=== PATIENT | male | born 1950 | race Caucasian/White ===

== ENCOUNTER 2022-01-31 09:15 | Outpatient (RCR) | payer MEDICARE ==
[2022-01-31] MEDS ORDERED: LIDOCAINE VISC 2% SOLN 15 ML UDC ONE (11:40)
[2022-02-10] MEDS ORDERED: DROXIDOPA100 MG PO (14:59)
[2022-02-10] MEDS ORDERED: FLUDROCORTISON0.1 MG PO (14:59)
[2022-02-10] MEDS ORDERED: MIDODRINE HCL5 MG PO (14:59)
[2022-02-10] MEDS ORDERED: FEROSUL325 MG PO (14:59)
[2022-02-10] MEDS ORDERED: POTASSIUM CHLO20 ME1 PO (14:59)
[2022-02-10] MEDS ORDERED: MAGNESIUM OXID400 MG PO (14:59)
[2022-02-10] MEDS ORDERED: PANTOPRAZOLE SO40 MG PO (14:59)
[2022-02-10] MEDS ORDERED: SIMVASTATIN40 MG PO (14:59)
[2022-02-10] MEDS ORDERED: ASPIRIN CHEW81 MG PO (14:59)
[2022-02-14] MEDS ORDERED: KEFLEX125 MG/5 M PO (16:56)
[2022-02-14] MEDS ORDERED: ELIQUIS2.5 MG PO (16:57)
== END 2022-02-16 ==
LOC: WCC 09:15
PROVIDERS: ATTEND Internal Medicine Infectious Disease
DX: I87.311 Chronic venous hypertension (idiopathic) with ulcer of right lower extremity (principal); I87.312 Chronic venous hypertension (idiopathic) with ulcer of left lower extremity; L97.211 Non-pressure chronic ulcer of right calf limited to breakdown of skin; L97.221 Non-pressure chronic ulcer of left calf limited to breakdown of skin; L97.821 Non-pressure chronic ulcer of other part of left lower leg limited to breakdown of skin; I87.2 Venous insufficiency (chronic) (peripheral); M1A.9XX0 Chronic gout, unspecified, without tophus (tophi); E78.5 Hyperlipidemia, unspecified; I25.10 Atherosclerotic heart disease of native coronary artery without angina pectoris; I50.9 Heart failure, unspecified; J44.9 Chronic obstructive pulmonary disease, unspecified; D51.0 Vitamin B12 deficiency anemia due to intrinsic factor deficiency; G47.31 Primary central sleep apnea; I95.89 Other hypotension; K21.9 Gastro-esophageal reflux disease without esophagitis; N18.6 End stage renal disease; Z99.2 Dependence on renal dialysis; Z99.81 Dependence on supplemental oxygen

== ENCOUNTER → 2022-02-06 | Outpatient (CLI) | payer MEDICARE ==
[~2022-02-06] MED LIST: ASPIRIN CHEW81 MG PO; DROXIDOPA100 MG PO; FEROSUL325 MG PO; FLUDROCORTISON0.1 MG PO; MAGNESIUM OXID400 MG PO; MIDODRINE HCL5 MG PO; PANTOPRAZOLE SO40 MG PO; POTASSIUM CHLO20 ME1 PO; SIMVASTATIN40 MG PO
== END ==
LOC: CARD 09:32
PROVIDERS: ATTEND Internal Medicine Infectious Disease
DX: I25.10 Atherosclerotic heart disease of native coronary artery without angina pectoris (principal); I87.2 Venous insufficiency (chronic) (peripheral)
CPT/HCPCS: 93922; 93925; 93970

== ENCOUNTER 2022-02-10 14:20 | Inpatient (IN) | payer MEDICARE ==
[~2022-02-10] VITALS: Ht 167.6 cm; Wt 113.4 kg
[2022-02-10] MEDS ORDERED: ENOXAPARIN SODIUM INJ 100 MG/ML SYR SC STA (14:23)
[2022-02-10] MEDS ORDERED: HEPARIN SOD (PORCINE) 5,000 UNIT/ML VIAL IV ONE (14:45)
[2022-02-10] MEDS ORDERED: POTASSIUM CHLO20 ME1 PO (14:59)
[2022-02-10] MEDS ORDERED: MAGNESIUM OXID400 MG PO (14:59)
[2022-02-10] MEDS ORDERED: PANTOPRAZOLE SO40 MG PO (14:59)
[2022-02-10] MEDS ORDERED: FLUDROCORTISON0.1 MG PO (14:59)
[2022-02-10] MEDS ORDERED: FEROSUL325 MG PO (14:59)
[2022-02-10] MEDS ORDERED: SIMVASTATIN40 MG PO (14:59)
[2022-02-10] MEDS ORDERED: MIDODRINE HCL5 MG PO (14:59)
[2022-02-10] MEDS ORDERED: DROXIDOPA100 MG PO (14:59)
[2022-02-10] MEDS ORDERED: ASPIRIN CHEW81 MG PO (14:59)
[2022-02-10] MEDS ORDERED: HEPARIN 25,000 UNIT 1,500 UNIT in DEXTROSE 5% 250ML 250 ML IV SCH (15:00)
[2022-02-10 15:01] LABS: BASOPHILS # (AUTO) 0.1 (0.0-0.1); BASOPHILS % 0.6 % (0.0-1.0); EOSINOPHILS # (AUTO) 0.1 (0.0-0.4); EOSINOPHILS % 0.8 % (0.0-6.0); HEMATOCRIT 40.3 % (38.2-49.6); HEMOGLOBIN 13.1 g/dL (14.0-18.0); LYMPHOCYTES # (AUTO) 2.8 (1.0-3.2); LYMPHOCYTES % 28.6 % (18.0-39.1); MEAN CORPUSCULAR HEMOGLOBIN 29.4 pg (28-32); MEAN CORPUSCULAR HGB CONC 32.5 g/dL (31-35); MEAN CORPUSCULAR VOLUME 90.4 fL (81-99); MONOCYTES # (AUTO) 0.9 (0.2-0.8); MONOCYTES % 9.1 % (4.4-11.3); NEUTROPHILS # (AUTO) 5.8 (2.1-6.9); NEUTROPHILS % 59.9 % (38.7-80.0); PLATELET COUNT 300 x10e3/uL (140-360); RED BLOOD COUNT 4.46 x10e6/uL (4.3-5.7); RED CELL DISTRIBUTION WIDTH 14.6 % (11.7-14.4)
[2022-02-10 15:08] LABS: INR 0.79; PROTHROMBIN TIME 11.7 seconds (11.9-14.5)
[2022-02-10] MEDS ORDERED: ONDANSETRON HCL INJ 2MG/ML 2ML 2 MG/ML VIAL IV STA (15:13)
[2022-02-10 15:15] LABS: ALBUMIN 1.7 g/dL (3.5-5.0); ALBUMIN/GLOBULIN RATIO 0.4 (0.8-2.0); CALCIUM 7.6 mg/dL (8.4-10.2); CREATININE, SERUM 7.2 mg/dL (0.72-1.25)
[2022-02-10] MEDS ORDERED: Morphine 4mg INJECTION 4 MG/ML INJ IV ONE (15:15)
[2022-02-10 20:00] VITALS: BP 104/65
[2022-02-10 21:30] VITALS: BP 104/65
[2022-02-10] MEDS: SIMVASTATIN 40 MG TAB PO SCH (22:42)
[2022-02-10] MEDS: HYDROCODONE/APAP 5MG-325MG TAB PO PRN (22:42)
[2022-02-11] VITALS (8 sets, daily range): BP systolic 90–150; BP diastolic 38–95
[2022-02-11 05:58] LABS: BASOPHILS # (AUTO) 0.1 (0.0-0.1); BASOPHILS % 0.6 % (0.0-1.0); EOSINOPHILS # (AUTO) 0.1 (0.0-0.4); EOSINOPHILS % 1.2 % (0.0-6.0); HEMATOCRIT 38.6 % (38.2-49.6); HEMOGLOBIN 12.8 g/dL (14.0-18.0); LYMPHOCYTES % 35.3 % (18.0-39.1); MEAN CORPUSCULAR HEMOGLOBIN 29.6 pg (28-32); MEAN CORPUSCULAR HGB CONC 33.2 g/dL (31-35); MEAN CORPUSCULAR VOLUME 89.1 fL (81-99); MONOCYTES % 11.7 % (4.4-11.3); NEUTROPHILS # (AUTO) 4.1 (2.1-6.9); NEUTROPHILS % 49.5 % (38.7-80.0); PLATELET COUNT 287 x10e3/uL (140-360); RED BLOOD COUNT 4.33 x10e6/uL (4.3-5.7); RED CELL DISTRIBUTION WIDTH 14.8 % (11.7-14.4)
[2022-02-11 06:31] LABS: ALBUMIN 1.7 g/dL (3.5-5.0); ALBUMIN/GLOBULIN RATIO 0.4 (0.8-2.0); ANION GAP 16.4 mmol/L (8-16); CALCIUM 7.8 mg/dL (8.4-10.2); CREATININE, SERUM 7.98 mg/dL (0.72-1.25); POTASSIUM 4.4 mmol/L (3.5-5.1)
[2022-02-11] MEDS: HYDROCODONE/APAP 5MG-325MG TAB PO PRN ×3 (06:45→20:28)
[2022-02-11] MEDS: DROXIDOPA 100 MG PO SCH ×3 (09:00→19:21)
[2022-02-11] MEDS: APIXAB 2.5 MG TABLET PO SCH ×2 (09:16→17:15)
[2022-02-11] MEDS: FLUDROCORTISONE ACETATE 0.1 MG TAB PO SCH (09:16)
[2022-02-11] MEDS: MAGNESIUM OXIDE 400 MG TAB PO SCH (09:17)
[2022-02-11] MEDS: POTASSIUM CHLORIDE 20 MEQ TAB CR PO SCH ×2 (09:17→17:15)
[2022-02-11] MEDS: ASPIRIN 81 MG CHEW TAB PO SCH (09:17)
[2022-02-11] MEDS: PANTOPRAZOLE SOD 40 MG TABEC PO SCH (09:17)
[2022-02-11] MEDS: MIDODRINE HCL 5 MG TABLET PO SCH ×3 (09:17→17:00)
[2022-02-11] MEDS: FERROUS SULFATE 325 MG TAB PO SCH (09:17)
[2022-02-11] MEDS ORDERED: LIDOCAINE VISC 2% SOLN 15 ML UDC TOP PRN (10:15)
[2022-02-11] MEDS ORDERED: SODIUM CHLORIDE 0.9% 100 ML ONE (14:54)
[2022-02-11] MEDS: SIMVASTATIN 40 MG TAB PO SCH (20:28)
[2022-02-12] VITALS (8 sets, daily range): BP systolic 121–154; BP diastolic 50–88
[2022-02-12] MEDS: HYDROCODONE/APAP 5MG-325MG TAB PO PRN ×4 (02:48→22:56)
[2022-02-12] MEDS: POTASSIUM CHLORIDE 20 MEQ TAB CR PO SCH ×2 (10:04→17:45)
[2022-02-12] MEDS: ASPIRIN 81 MG CHEW TAB PO SCH (10:05)
[2022-02-12] MEDS: MAGNESIUM OXIDE 400 MG TAB PO SCH (10:05)
[2022-02-12] MEDS: FLUDROCORTISONE ACETATE 0.1 MG TAB PO SCH (10:05)
[2022-02-12] MEDS: COLLAGENASE 5 GM TUBE TOP SCH (10:06)
[2022-02-12] MEDS: APIXAB 2.5 MG TABLET PO SCH ×2 (10:06→17:38)
[2022-02-12] MEDS: DROXIDOPA 100 MG PO SCH ×3 (10:06→21:00)
[2022-02-12] MEDS: PANTOPRAZOLE SOD 40 MG TABEC PO SCH (10:06)
[2022-02-12] MEDS: FERROUS SULFATE 325 MG TAB PO SCH (10:06)
[2022-02-12] MEDS: MIDODRINE HCL 5 MG TABLET PO SCH ×3 (10:07→17:38)
[2022-02-12 12:36] LABS: BASOPHILS # (AUTO) 0.1 (0.0-0.1); BASOPHILS % 0.5 % (0.0-1.0); EOSINOPHILS # (AUTO) 0.1 (0.0-0.4); EOSINOPHILS % 1.3 % (0.0-6.0); HEMATOCRIT 40.2 % (38.2-49.6); LYMPHOCYTES # (AUTO) 2.9 (1.0-3.2); LYMPHOCYTES % 27.4 % (18.0-39.1); MEAN CORPUSCULAR HEMOGLOBIN 29.8 pg (28-32); MEAN CORPUSCULAR HGB CONC 32.3 g/dL (31-35); MEAN CORPUSCULAR VOLUME 92.2 fL (81-99); MONOCYTES % 9.7 % (4.4-11.3); NEUTROPHILS # (AUTO) 6.4 (2.1-6.9); NEUTROPHILS % 60.3 % (38.7-80.0); PLATELET COUNT 282 x10e3/uL (140-360); RED BLOOD COUNT 4.36 x10e6/uL (4.3-5.7); RED CELL DISTRIBUTION WIDTH 14.6 % (11.7-14.4)
[2022-02-12 13:00] LABS: CALCIUM 7.9 mg/dL (8.4-10.2)
[2022-02-12 13:04] LABS: CREATININE, SERUM 7.78 mg/dL (0.72-1.25)
[2022-02-12 13:35] LABS: ALBUMIN 1.8 g/dL (3.5-5.0)
[2022-02-12 13:38] LABS: ALBUMIN/GLOBULIN RATIO 0.4 (0.8-2.0)
[2022-02-12] MEDS: SIMVASTATIN 40 MG TAB PO SCH (21:22)
[2022-02-13] VITALS (9 sets, daily range): BP systolic 100–144; BP diastolic 62–85
[2022-02-13] MEDS: HYDROCODONE/APAP 5MG-325MG TAB PO PRN ×2 (06:35→14:31)
[2022-02-13] MEDS: APIXAB 2.5 MG TABLET PO SCH ×2 (09:43→18:36)
[2022-02-13] MEDS: MIDODRINE HCL 5 MG TABLET PO SCH ×3 (09:43→18:35)
[2022-02-13] MEDS: FLUDROCORTISONE ACETATE 0.1 MG TAB PO SCH (09:44)
[2022-02-13] MEDS: FERROUS SULFATE 325 MG TAB PO SCH (09:45)
[2022-02-13] MEDS: ASPIRIN 81 MG CHEW TAB PO SCH (09:45)
[2022-02-13] MEDS: PANTOPRAZOLE SOD 40 MG TABEC PO SCH (09:45)
[2022-02-13] MEDS: MAGNESIUM OXIDE 400 MG TAB PO SCH (09:46)
[2022-02-13] MEDS: POTASSIUM CHLORIDE 20 MEQ TAB CR PO SCH ×2 (09:46→18:35)
[2022-02-13] MEDS: COLLAGENASE 5 GM TUBE TOP SCH (09:47)
[2022-02-13] MEDS: DROXIDOPA 100 MG PO SCH ×3 (09:51→21:00)
[2022-02-13] MEDS: SIMVASTATIN 40 MG TAB PO SCH (20:47)
[2022-02-13] MEDS: CEPHALEXIN 500 MG CAP PO SCH (20:48)
[2022-02-14 04:00] VITALS: BP 119/113
[2022-02-14 05:25] VITALS: BP 118/70
[2022-02-14 07:58] VITALS: BP 120/85
[2022-02-14 08:00] VITALS: BP 120/85
[2022-02-14] MEDS: MIDODRINE HCL 5 MG TABLET PO SCH ×3 (08:00→16:44)
[2022-02-14] MEDS: HYDROCODONE/APAP 5MG-325MG TAB PO PRN (08:10)
[2022-02-14] MEDS: FLUDROCORTISONE ACETATE 0.1 MG TAB PO SCH (08:11)
[2022-02-14] MEDS: APIXAB 2.5 MG TABLET PO SCH ×2 (08:11→16:44)
[2022-02-14] MEDS: ASPIRIN 81 MG CHEW TAB PO SCH (08:11)
[2022-02-14] MEDS: FERROUS SULFATE 325 MG TAB PO SCH (08:12)
[2022-02-14] MEDS: CEPHALEXIN 500 MG CAP PO SCH (08:12)
[2022-02-14] MEDS: POTASSIUM CHLORIDE 20 MEQ TAB CR PO SCH ×2 (08:12→16:45)
[2022-02-14] MEDS: PANTOPRAZOLE SOD 40 MG TABEC PO SCH (08:12)
[2022-02-14] MEDS: MAGNESIUM OXIDE 400 MG TAB PO SCH (08:12)
[2022-02-14] MEDS: DROXIDOPA 100 MG PO SCH (09:00)
[2022-02-14] MEDS: COLLAGENASE 5 GM TUBE TOP SCH (09:00)
[2022-02-14 11:35] VITALS: BP 105/79
[2022-02-14 16:14] VITALS: BP 144/87
[2022-02-14] MEDS ORDERED: KEFLEX125 MG/5 M PO (16:56)
[2022-02-14] MEDS ORDERED: ELIQUIS2.5 MG PO (16:57)
[2022-02-14 17:22] LABS: FERRITIN 1699.66 ng/mL (21.81-274.66)
== END 2022-02-14 17:47 | disposition home or self-care (01) | DRG 299 ==
LOC: ER 14:22 → ERHOLD 16:39 → MED/SURG2 18:49 → OBSVTOIN 02-11 08:24
PROVIDERS: ADMIT Internal Medicine; ATTEND Internal Medicine
PROC: 3E1M39Z Irrigation of Peritoneal Cavity using Dialysate, Percutaneous Approach (ICD-10-PCS; principal; 2022-02-11)
DX: I82.411 Acute embolism and thrombosis of right femoral vein (principal); N18.6 End stage renal disease; L97.819 Non-pressure chronic ulcer of other part of right lower leg with unspecified severity; L97.829 Non-pressure chronic ulcer of other part of left lower leg with unspecified severity; L03.115 Cellulitis of right lower limb; I13.2 Hypertensive heart and chronic kidney disease with heart failure and with stage 5 chronic kidney disease, or end stage renal disease; I83.028 Varicose veins of left lower extremity with ulcer other part of lower leg; I83.018 Varicose veins of right lower extremity with ulcer other part of lower leg; Z99.2 Dependence on renal dialysis; E11.22 Type 2 diabetes mellitus with diabetic chronic kidney disease; E78.5 Hyperlipidemia, unspecified; I50.9 Heart failure, unspecified; D64.9 Anemia, unspecified; E11.51 Type 2 diabetes mellitus with diabetic peripheral angiopathy without gangrene; I25.10 Atherosclerotic heart disease of native coronary artery without angina pectoris; Z20.822 Contact with and (suspected) exposure to COVID-19
CPT/HCPCS: 0223U; 36415; 71046; 80053; 82607; 82728; 82746; 83540; 84165; 84466; 85025; 85045; 85610; 85730; 86706; 87340; 93005; 93306; 99251; 99284; G0378; J0690; J1644; J7050

== ENCOUNTER 2022-02-15 15:11 | Inpatient (IN) | payer MEDICARE, OTHER ==
[2022-02-15] VITALS (30 sets, daily range): BP systolic 60–169; BP diastolic 33–109
[~2022-02-15] VITALS: Ht 167.6 cm; Wt 103.0 kg
[~2022-02-15 15:11] MED LIST changes: +ELIQUIS2.5 MG PO; +KEFLEX125 MG/5 M PO; +SUCCINYLCHOLINE CHLORIDE 20 MG/ML 10ML VIAL ONE
[2022-02-15 15:29] LABS: BASOPHILS # (AUTO) 0.1 (0.0-0.1); BASOPHILS % 0.5 % (0.0-1.0); EOSINOPHILS # (AUTO) 0.1 (0.0-0.4); EOSINOPHILS % 0.8 % (0.0-6.0); HEMATOCRIT 35.6 % (38.2-49.6); HEMOGLOBIN 11.6 g/dL (14.0-18.0); LYMPHOCYTES # (AUTO) 3.9 (1.0-3.2); MEAN CORPUSCULAR HGB CONC 32.6 g/dL (31-35); MONOCYTES # (AUTO) 0.8 (0.2-0.8); MONOCYTES % 6.4 % (4.4-11.3); NEUTROPHILS # (AUTO) 6.5 (2.1-6.9); NEUTROPHILS % 54.7 % (38.7-80.0); PLATELET COUNT 315 x10e3/uL (140-360); RED BLOOD COUNT 3.87 x10e6/uL (4.3-5.7); RED CELL DISTRIBUTION WIDTH 14.3 % (11.7-14.4)
[2022-02-15 15:43] LABS: INR 1.06; PROTHROMBIN TIME 14.8 seconds (11.9-14.5)
[2022-02-15] MEDS ORDERED: NOREPINEPHRINE 8 MG/D5W 250 ML 250 ML ONE ×2 (15:43→19:34)
[2022-02-15 15:53] LABS: ALBUMIN 1.4 g/dL (3.5-5.0); ALBUMIN/GLOBULIN RATIO 0.4 (0.8-2.0); ALKALINE PHOSPHATASE 125 IU/L (40-150); ANION GAP 27.8 mmol/L (8-16); BLOOD UREA NITROGEN 35 mg/dL (7-26); BUN/CREATININE RATIO 5 (6-25); CALCIUM 7.4 mg/dL (8.4-10.2); CARBON DIOXIDE 14 mmol/L (22-29); CHLORIDE 91 mmol/L (98-107); CREATININE, SERUM 7.59 mg/dL (0.72-1.25); GLUCOSE 177 mg/dL (74-118); POTASSIUM 3.8 mmol/L (3.5-5.1); SODIUM 129 mmol/L (136-145)
[2022-02-15 15:56] LABS: ALANINE AMINOTRANSFERASE < 6 IU/L (0-55)
[2022-02-15 15:58] LABS: SALICYLATE < 5.0 mg/dL (0-30)
[2022-02-15 16:21] LABS: ABG HCO3 15 mmol/L (22-26); ABG PCO2 32 mmHg (35-45); ABG PH 7.29 (7.35-7.45); ABG PO2 161 mmHg (80-105); ABG TCO2 16
[2022-02-15] MEDS ORDERED: MIDAZOLAM HCL 5MG/ML 10ML VIAL 100 ML IV PRN (16:45)
[2022-02-15] MEDS ORDERED: SODIUM CHLORIDE 0.9% 1000ML 1,000 ML IV SCH (16:45)
[2022-02-15] MEDS: FENTANYL 2000MCG/NS 250 250 ML IV PRN (17:07)
[2022-02-15] MEDS ORDERED: EPINEPHRINE HCL 1:1000 1ML 4 MG in DEXTROSE 5% 250ML 250 ML IV SCH ×4 (17:15)
[2022-02-15] MEDS ORDERED: Vancomycin IV 1 GM in SODIUM CHLORIDE 0.9% 250ML 250 ML IV ONE (17:30)
[2022-02-15] MEDS ORDERED: SODIUM BICARBONATE 8.4% INJ 50 ML SYR IV STA (18:23)
[2022-02-15] MEDS: SODIUM BICARBONATE 8.4% SYRING 150 ML in DEXTROSE 5% 1,000 ML IV SCH (18:30)
[2022-02-15] MEDS ORDERED: SODIUM BICARBONATE 8.4% SYRING 150 ML in DEXTROSE 5% 1,000 ML IV ONE (18:30)
[2022-02-15] MEDS ORDERED: SODIUM BICARBONATE 8.4% SYRING 150 ML ONE ×2 (18:35→18:46)
[2022-02-15] MEDS ORDERED: DEXTROSE 5% 1,000 ML IV ONE (18:47)
[2022-02-15] MEDS ORDERED: ALBUMIN 25% 25GM 100ML 200 ML ONE (19:30)
[2022-02-15] MEDS ORDERED: SODIUM CHLORIDE 0.9% 1000ML 1,000 ML ONE (19:31)
[2022-02-15] MEDS ORDERED: NOREPINEPHRINE 8 MG/D5W 250 ML 250 ML IV PRN (19:34)
[2022-02-15] MEDS ORDERED: HYDROCORTISONE SOD SUCCINATE 100 MG VIAL IV STA (19:43)
[2022-02-15] MEDS ORDERED: VASOPRESSIN 60 UNIT in DEXTROSE 5% 50ML 57 ML IV STA (19:51)
[2022-02-15] MEDS ORDERED: ALBUMIN 25% 25GM 100ML 0.25 GM/ML BTL IV STA (19:55)
[2022-02-15] MEDS ORDERED: VASOPRESSIN 60 UNIT in DEXTROSE 5% 50ML 57 ML IV PRN (20:00)
[2022-02-15] MEDS: MIDODRINE HCL 5 MG TABLET PO SCH (20:53)
[2022-02-15] MEDS: SIMVASTATIN 40 MG TAB PO SCH (20:54)
[2022-02-15 20:56] LABS: BODY FLUID APPEARANCE CLEAR; BODY FLUID COLOR COLORLESS; BODY FLUID TYPE PERITONEAL
[2022-02-15 20:57] LABS: RBC,BODY FLUID 0 cells/uL; WBC,BODY FLUID 0.016 cells/uL
[2022-02-15 21:38] LABS: LYMPHOCYTES,BODY FLUID 15 %; MONO/MACROPHG,BODY FLUID 72 %; NEUTROPHILS,BODY FLUID 11 %; OTHER CELLS,BODY FLUID 2 %
[2022-02-15] MEDS ORDERED: Vancomycin IV 1 GM VIAL ONE (21:52)
[2022-02-15] MEDS ORDERED: SODIUM CHLORIDE 0.9% 250ML 250 ML ONE (21:53)
[2022-02-16] VITALS (61 sets, daily range): BP systolic 89–145; BP diastolic 45–106
[2022-02-16 01:15] LABS: ABG HCO3 22 mmol/L (22-26); ABG PCO2 28 mmHg (35-45); ABG PO2 168 mmHg (80-105); ABG TCO2 23
[2022-02-16] MEDS: FENTANYL 2000MCG/NS 250 250 ML IV PRN (03:09)
[2022-02-16 06:18] LABS: BASOPHILS % 0.1 % (0.0-1.0); HEMATOCRIT 27.1 % (38.2-49.6); HEMOGLOBIN 9.3 g/dL (14.0-18.0); LYMPHOCYTES # (AUTO) 0.8 (1.0-3.2); LYMPHOCYTES % 9.9 % (18.0-39.1); MEAN CORPUSCULAR HEMOGLOBIN 29.4 pg (28-32); MEAN CORPUSCULAR HGB CONC 34.3 g/dL (31-35); MONOCYTES # (AUTO) 0.6 (0.2-0.8); MONOCYTES % 7.2 % (4.4-11.3); NEUTROPHILS # (AUTO) 6.3 (2.1-6.9); NEUTROPHILS % 82.1 % (38.7-80.0); PLATELET COUNT 183 x10e3/uL (140-360); RED BLOOD COUNT 3.16 x10e6/uL (4.3-5.7); RED CELL DISTRIBUTION WIDTH 13.8 % (11.7-14.4)
[2022-02-16 06:28] LABS: MEAN CORPUSCULAR VOLUME 85.8 fL (81-99)
[2022-02-16] MEDS ORDERED: MEROPENEM 500 MG VIAL ONE (06:31)
[2022-02-16 06:36] LABS: ANION GAP 18.6 mmol/L (8-16); CALCIUM 7.1 mg/dL (8.4-10.2); CREATININE, SERUM 7.33 mg/dL (0.72-1.25); POTASSIUM 3.6 mmol/L (3.5-5.1)
[2022-02-16 06:44] LABS: CREATINE KINASE MB 7.4 ng/mL (0-5.0)
[2022-02-16] MEDS ORDERED: PANTOPRAZOLE SOD 40 MG TABEC PO SCH (07:30)
[2022-02-16 08:28] LABS: ABG HCO3 28 mmol/L (22-26); ABG PCO2 31 mmHg (35-45); ABG PH 7.57 (7.35-7.45); ABG PO2 145 mmHg (80-105); ABG TCO2 29
[2022-02-16] MEDS: APIXAB 2.5 MG TABLET PO SCH (11:14)
[2022-02-16] MEDS: ASPIRIN 81 MG CHEW TAB PO SCH (11:14)
[2022-02-16] MEDS: MIDODRINE HCL 5 MG TABLET PO SCH ×3 (11:14→21:01)
[2022-02-16 13:18] LABS: CREATINE KINASE MB 9.3 ng/mL (0-5.0)
[2022-02-16] MEDS: SODIUM BICARBONATE 8.4% SYRING 150 ML in DEXTROSE 5% 1,000 ML IV SCH (14:54)
[2022-02-16] MEDS: SIMVASTATIN 40 MG TAB PO SCH (21:01)
[2022-02-17] VITALS (22 sets, daily range): BP systolic 91–121; BP diastolic 48–87
[2022-02-17 03:07] LABS: IRON 23 ug/dL (65-175); TRANSFERRIN < 70 mg/dL (174-364)
[2022-02-17 07:20] LABS: BASOPHILS % 0.2 % (0.0-1.0); EOSINOPHILS # (AUTO) 0.1 (0.0-0.4); EOSINOPHILS % 0.8 % (0.0-6.0); HEMATOCRIT 25.7 % (38.2-49.6); HEMOGLOBIN 8.8 g/dL (14.0-18.0); LYMPHOCYTES # (AUTO) 1.8 (1.0-3.2); LYMPHOCYTES % 21.8 % (18.0-39.1); MEAN CORPUSCULAR HEMOGLOBIN 29.9 pg (28-32); MEAN CORPUSCULAR HGB CONC 34.2 g/dL (31-35); MEAN CORPUSCULAR VOLUME 87.4 fL (81-99); MONOCYTES # (AUTO) 0.5 (0.2-0.8); MONOCYTES % 5.9 % (4.4-11.3); NEUTROPHILS # (AUTO) 5.8 (2.1-6.9); NEUTROPHILS % 70.5 % (38.7-80.0); PLATELET COUNT 166 x10e3/uL (140-360); RED BLOOD COUNT 2.94 x10e6/uL (4.3-5.7); RED CELL DISTRIBUTION WIDTH 14.5 % (11.7-14.4)
[2022-02-17 07:46] LABS: ALBUMIN 1.7 g/dL (3.5-5.0); ALBUMIN/GLOBULIN RATIO 0.7 (0.8-2.0); ALKALINE PHOSPHATASE 76 IU/L (40-150); ANION GAP 15.1 mmol/L (8-16); BLOOD UREA NITROGEN 38 mg/dL (7-26); BUN/CREATININE RATIO 6 (6-25); CARBON DIOXIDE 32 mmol/L (22-29); CHLORIDE 87 mmol/L (98-107); CREATININE, SERUM 6.73 mg/dL (0.72-1.25); GLUCOSE 125 mg/dL (74-118); POTASSIUM 3.1 mmol/L (3.5-5.1); SODIUM 131 mmol/L (136-145)
[2022-02-17 07:51] LABS: ALANINE AMINOTRANSFERASE < 6 IU/L (0-55)
[2022-02-17 07:54] LABS: CREATINE KINASE MB 6.5 ng/mL (0-5.0)
[2022-02-17 08:13] LABS: CALCIUM 6.8 mg/dL (8.4-10.2)
[2022-02-17] MEDS: SUCRALFATE 1 GM TAB PO SCH ×4 (08:14→21:55)
[2022-02-17] MEDS: APIXAB 2.5 MG TABLET PO SCH (08:14)
[2022-02-17] MEDS: ASPIRIN 81 MG CHEW TAB PO SCH (08:14)
[2022-02-17] MEDS: MIDODRINE HCL 5 MG TABLET PO SCH ×3 (08:14→21:55)
[2022-02-17] MEDS ORDERED: POTASSIUM CHLORIDE 20 MEQ TAB CR PO ONE (11:00)
[2022-02-17] MEDS: FLUDROCORTISONE ACETATE 0.1 MG TAB PO SCH (17:08)
[2022-02-17] MEDS: DROXIDOPA 100 MG PO SCH ×2 (17:08→21:56)
[2022-02-17] MEDS: SIMVASTATIN 40 MG TAB PO SCH (21:55)
[2022-02-17] MEDS ORDERED: SODIUM CHLORIDE 0.9% 250ML 250 ML ONE (22:01)
[2022-02-18] VITALS (8 sets, daily range): BP systolic 91–145; BP diastolic 36–77
[2022-02-18] MEDS ORDERED: ACETAMINOPHEN 325 MG TAB PO STA (08:55)
[2022-02-18] MEDS ORDERED: DEXAMETHASONE SOD PHOS 10 MG/1 ML VIAL IV ONE (09:00)
[2022-02-18] MEDS ORDERED: SODIUM CHLORIDE 0.9% 250ML 250 ML IV ONE (09:00)
[2022-02-18] MEDS: SUCRALFATE 1 GM TAB PO SCH ×5 (09:59→20:13)
[2022-02-18] MEDS: ASPIRIN 81 MG CHEW TAB PO SCH (09:59)
[2022-02-18] MEDS: APIXAB 2.5 MG TABLET PO SCH (09:59)
[2022-02-18] MEDS: CYANOCOBALAMIN INJ 1,000 MCG/ML VIAL IM SCH (09:59)
[2022-02-18] MEDS: IRON SUCROSE 100 MG in SODIUM CHLORIDE 0.9% 100 ML IV SCH (10:00)
[2022-02-18] MEDS: MIDODRINE HCL 5 MG TABLET PO SCH ×3 (10:01→20:13)
[2022-02-18] MEDS: COLLAGENASE 5 GM TUBE TP SCH (10:01)
[2022-02-18] MEDS: FLUDROCORTISONE ACETATE 0.1 MG TAB PO SCH ×2 (10:01→16:52)
[2022-02-18] MEDS: DROXIDOPA 100 MG PO SCH ×3 (10:01→20:13)
[2022-02-18] MEDS: FOLIC ACID 1 MG TAB PO SCH (10:01)
[2022-02-18] MEDS ORDERED: SODIUM CHLORIDE 0.9% 250ML 250 ML ONE ×2 (14:19→21:56)
[2022-02-18] MEDS ORDERED: ACETAMINOPHEN 325 MG TAB ONE (14:20)
[2022-02-18] MEDS ORDERED: DEXAMETHASONE SOD PHOS 10 MG/1 ML VIAL ONE (14:20)
[2022-02-18] MEDS: SIMVASTATIN 40 MG TAB PO SCH (20:13)
[2022-02-18] MEDS: LEVOFLOXACIN 250 MG TAB PO SCH (20:13)
[2022-02-19] VITALS (8 sets, daily range): BP systolic 111–153; BP diastolic 38–83
[2022-02-19] MEDS: SUCRALFATE 1 GM TAB PO SCH ×4 (09:12→20:58)
[2022-02-19] MEDS: ASPIRIN 81 MG CHEW TAB PO SCH (09:13)
[2022-02-19] MEDS: CYANOCOBALAMIN INJ 1,000 MCG/ML VIAL IM SCH (09:13)
[2022-02-19] MEDS: FLUDROCORTISONE ACETATE 0.1 MG TAB PO SCH ×2 (09:13→17:22)
[2022-02-19] MEDS: FOLIC ACID 1 MG TAB PO SCH (09:13)
[2022-02-19] MEDS: APIXAB 2.5 MG TABLET PO SCH (09:13)
[2022-02-19] MEDS: MIDODRINE HCL 5 MG TABLET PO SCH ×3 (09:13→21:00)
[2022-02-19] MEDS: DROXIDOPA 100 MG PO SCH ×3 (09:14→21:00)
[2022-02-19] MEDS: IRON SUCROSE 100 MG in SODIUM CHLORIDE 0.9% 100 ML IV SCH (09:28)
[2022-02-19] MEDS: Morphine 2mg Syringe 2 MG/ML SYR IV PRN ×2 (11:29→21:29)
[2022-02-19] MEDS: COLLAGENASE 5 GM TUBE TP SCH (11:32)
[2022-02-19] MEDS: LEVOFLOXACIN 250 MG TAB PO SCH (17:21)
[2022-02-19] MEDS: SIMVASTATIN 40 MG TAB PO SCH (20:58)
[2022-02-20] VITALS (7 sets, daily range): BP systolic 119–151; BP diastolic 56–80
[2022-02-20] MEDS ORDERED: SODIUM CHLORIDE 0.9% 100 ML ONE (08:05)
[2022-02-20] MEDS: MIDODRINE HCL 5 MG TABLET PO SCH ×3 (08:30→21:09)
[2022-02-20] MEDS: ASPIRIN 81 MG CHEW TAB PO SCH (08:30)
[2022-02-20] MEDS: FOLIC ACID 1 MG TAB PO SCH (08:30)
[2022-02-20] MEDS: SUCRALFATE 1 GM TAB PO SCH ×4 (08:30→21:09)
[2022-02-20] MEDS: CYANOCOBALAMIN INJ 1,000 MCG/ML VIAL IM SCH (08:30)
[2022-02-20] MEDS: APIXAB 2.5 MG TABLET PO SCH (08:30)
[2022-02-20] MEDS: FLUDROCORTISONE ACETATE 0.1 MG TAB PO SCH ×2 (08:30→17:12)
[2022-02-20] MEDS: DROXIDOPA 100 MG PO SCH ×3 (08:31→21:10)
[2022-02-20] MEDS: COLLAGENASE 5 GM TUBE TP SCH (08:33)
[2022-02-20] MEDS: IRON SUCROSE 100 MG in SODIUM CHLORIDE 0.9% 100 ML IV SCH (08:43)
[2022-02-20 09:55] LABS: BASOPHILS % 0.5 % (0.0-1.0); EOSINOPHILS # (AUTO) 0.2 (0.0-0.4); EOSINOPHILS % 2.8 % (0.0-6.0); HEMATOCRIT 32.9 % (38.2-49.6); LYMPHOCYTES # (AUTO) 2.2 (1.0-3.2); LYMPHOCYTES % 27.6 % (18.0-39.1); MEAN CORPUSCULAR HEMOGLOBIN 29.6 pg (28-32); MEAN CORPUSCULAR HGB CONC 33.4 g/dL (31-35); MEAN CORPUSCULAR VOLUME 88.4 fL (81-99); MONOCYTES # (AUTO) 0.9 (0.2-0.8); MONOCYTES % 10.7 % (4.4-11.3); NEUTROPHILS # (AUTO) 4.6 (2.1-6.9); PLATELET COUNT 198 x10e3/uL (140-360); RED BLOOD COUNT 3.72 x10e6/uL (4.3-5.7); RED CELL DISTRIBUTION WIDTH 14.5 % (11.7-14.4)
[2022-02-20 10:15] LABS: ALBUMIN 1.6 g/dL (3.5-5.0); ALBUMIN/GLOBULIN RATIO 0.5 (0.8-2.0); ALKALINE PHOSPHATASE 112 IU/L (40-150); ANION GAP 12.5 mmol/L (8-16); BLOOD UREA NITROGEN 43 mg/dL (7-26); BUN/CREATININE RATIO 7 (6-25); CARBON DIOXIDE 29 mmol/L (22-29); CHLORIDE 91 mmol/L (98-107); CREATININE, SERUM 6.49 mg/dL (0.72-1.25); GLUCOSE 91 mg/dL (74-118); POTASSIUM 3.5 mmol/L (3.5-5.1); SODIUM 129 mmol/L (136-145)
[2022-02-20] MEDS ORDERED: CHOLESTYRAMINE 4 GM PACKET PO PRN (10:15)
[2022-02-20 10:17] LABS: ALANINE AMINOTRANSFERASE < 6 IU/L (0-55); CALCIUM 6.8 mg/dL (8.4-10.2)
[2022-02-20 10:33] LABS: PHOSPHORUS 3.2 MG/DL (2.3-4.7)
[2022-02-20] MEDS ORDERED: POTASSIUM CHLORIDE 20 MEQ TAB CR PO ONE (13:30)
[2022-02-20] MEDS: LEVOFLOXACIN 250 MG TAB PO SCH (17:12)
[2022-02-20] MEDS: SIMVASTATIN 40 MG TAB PO SCH (21:08)
[2022-02-21] VITALS (8 sets, daily range): BP systolic 100–151; BP diastolic 66–86
[2022-02-21] MEDS ORDERED: MAGNESIUM SULFATE 2GM/50ML IV ONE (07:00)
[2022-02-21] MEDS ORDERED: MAGNESIUM SULFATE 2GM/50ML 50 ML IV ONE ×2 (07:30→11:30)
[2022-02-21] MEDS: SUCRALFATE 1 GM TAB PO SCH ×4 (07:30→21:05)
[2022-02-21] MEDS ORDERED: REGADENOSON 0.4 MG/5 ML SYR IV ONE (08:19)
[2022-02-21] MEDS: DROXIDOPA 100 MG PO SCH ×4 (09:00→21:00)
[2022-02-21] MEDS: MIDODRINE HCL 5 MG TABLET PO SCH ×4 (09:00→21:05)
[2022-02-21] MEDS: FLUDROCORTISONE ACETATE 0.1 MG TAB PO SCH ×2 (10:30→17:11)
[2022-02-21] MEDS: FOLIC ACID 1 MG TAB PO SCH (10:31)
[2022-02-21] MEDS: MAGNESIUM OXIDE 400 MG TAB PO SCH ×2 (10:31→17:11)
[2022-02-21] MEDS: APIXAB 2.5 MG TABLET PO SCH (10:32)
[2022-02-21] MEDS: CYANOCOBALAMIN INJ 1,000 MCG/ML VIAL IM SCH (10:32)
[2022-02-21] MEDS: ASPIRIN 81 MG CHEW TAB PO SCH (10:32)
[2022-02-21] MEDS: Morphine 2mg Syringe 2 MG/ML SYR IV PRN (11:00)
[2022-02-21] MEDS: VANCOMYCIN HCL 125 MG CAPSULE PO SCH ×3 (12:29→23:22)
[2022-02-21] MEDS: COLLAGENASE 5 GM TUBE TP SCH (16:19)
[2022-02-21] MEDS: SIMVASTATIN 40 MG TAB PO SCH (21:06)
[2022-02-22] VITALS (7 sets, daily range): BP systolic 114–186; BP diastolic 50–85
[2022-02-22] MEDS: VANCOMYCIN HCL 125 MG CAPSULE PO SCH ×3 (05:23→18:18)
[2022-02-22 07:48] LABS: BASOPHILS % 0.6 % (0.0-1.0); EOSINOPHILS # (AUTO) 0.2 (0.0-0.4); EOSINOPHILS % 3.4 % (0.0-6.0); HEMATOCRIT 27.8 % (38.2-49.6); HEMOGLOBIN 9.7 g/dL (14.0-18.0); LYMPHOCYTES # (AUTO) 1.9 (1.0-3.2); MEAN CORPUSCULAR HGB CONC 34.9 g/dL (31-35); MEAN CORPUSCULAR VOLUME 86.1 fL (81-99); MONOCYTES % 14.7 % (4.4-11.3); NEUTROPHILS # (AUTO) 3.4 (2.1-6.9); NEUTROPHILS % 49.4 % (38.7-80.0); PLATELET COUNT 201 x10e3/uL (140-360); RED BLOOD COUNT 3.23 x10e6/uL (4.3-5.7); RED CELL DISTRIBUTION WIDTH 14.2 % (11.7-14.4)
[2022-02-22 08:12] LABS: ALBUMIN 1.5 g/dL (3.5-5.0); ALBUMIN/GLOBULIN RATIO 0.5 (0.8-2.0); ALKALINE PHOSPHATASE 97 IU/L (40-150); ANION GAP 12.9 mmol/L (8-16); BLOOD UREA NITROGEN 41 mg/dL (7-26); BUN/CREATININE RATIO 7 (6-25); CARBON DIOXIDE 30 mmol/L (22-29); CHLORIDE 92 mmol/L (98-107); CREATININE, SERUM 6.22 mg/dL (0.72-1.25); GLUCOSE 99 mg/dL (74-118); SODIUM 132 mmol/L (136-145)
[2022-02-22 08:13] LABS: ALANINE AMINOTRANSFERASE < 6 IU/L (0-55)
[2022-02-22 08:14] LABS: CALCIUM 6.9 mg/dL (8.4-10.2); POTASSIUM 2.9 mmol/L (3.5-5.1)
[2022-02-22] MEDS ORDERED: POTASSIUM CHLORIDE 20 MEQ TAB CR PO STA (08:29)
[2022-02-22] MEDS ORDERED: MAGNESIUM SULF 1GRAM/DEXTROSE 100 ML IV ONE (08:30)
[2022-02-22] MEDS: MIDODRINE HCL 5 MG TABLET PO SCH ×3 (10:41→21:00)
[2022-02-22] MEDS: FOLIC ACID 1 MG TAB PO SCH (10:41)
[2022-02-22] MEDS: APIXAB 2.5 MG TABLET PO SCH (10:42)
[2022-02-22] MEDS: CYANOCOBALAMIN INJ 1,000 MCG/ML VIAL IM SCH (10:43)
[2022-02-22] MEDS: ASPIRIN 81 MG CHEW TAB PO SCH (10:43)
[2022-02-22] MEDS: FLUDROCORTISONE ACETATE 0.1 MG TAB PO SCH ×2 (10:44→18:17)
[2022-02-22] MEDS: SUCRALFATE 1 GM TAB PO SCH ×4 (10:44→20:36)
[2022-02-22] MEDS: MAGNESIUM OXIDE 400 MG TAB PO SCH ×2 (10:44→18:17)
[2022-02-22] MEDS: COLLAGENASE 5 GM TUBE TP SCH (11:08)
[2022-02-22] MEDS ORDERED: MAGNESIUM SULFATE 2GM/50ML IV SCH (11:15)
[2022-02-22] MEDS: DROXIDOPA 100 MG PO SCH ×3 (11:49→21:00)
[2022-02-22] MEDS: MAGNESIUM SULFATE 2GM/50ML 50 ML IV SCH ×3 (13:26→22:11)
[2022-02-22] MEDS: CHOLESTYRAMINE 4 GM PACKET PO SCH ×3 (15:00→20:47)
[2022-02-22] MEDS ORDERED: APIXAB 2.5 MG TABLET PO SCH (17:00)
[2022-02-22] MEDS: SIMVASTATIN 40 MG TAB PO SCH (20:35)
[2022-02-23] VITALS (8 sets, daily range): BP systolic 97–165; BP diastolic 71–92
[2022-02-23] MEDS: VANCOMYCIN HCL 125 MG CAPSULE PO SCH ×5 (00:44→23:40)
[2022-02-23] MEDS: MIDODRINE HCL 5 MG TABLET PO SCH ×3 (09:00→20:48)
[2022-02-23] MEDS: MAGNESIUM OXIDE 400 MG TAB PO SCH ×2 (09:00→16:44)
[2022-02-23] MEDS: DROXIDOPA 100 MG PO SCH ×3 (09:52→20:48)
[2022-02-23] MEDS: FOLIC ACID 1 MG TAB PO SCH (09:53)
[2022-02-23] MEDS: FLUDROCORTISONE ACETATE 0.1 MG TAB PO SCH ×2 (09:53→16:44)
[2022-02-23] MEDS: PANTOPRAZOLE SOD 40 MG TABEC PO SCH (10:01)
[2022-02-23] MEDS: SUCRALFATE 1 GM TAB PO SCH ×4 (10:01→20:47)
[2022-02-23] MEDS: COLLAGENASE 5 GM TUBE TP SCH (10:02)
[2022-02-23] MEDS: CHOLESTYRAMINE 4 GM PACKET PO SCH ×3 (10:47→20:48)
[2022-02-23] MEDS: Morphine 2mg Syringe 2 MG/ML SYR IV PRN ×2 (15:57→22:49)
[2022-02-23] MEDS: SIMVASTATIN 40 MG TAB PO SCH (20:47)
[2022-02-23] MEDS: APIXAB 2.5 MG TABLET PO SCH (21:19)
[2022-02-23] MEDS ORDERED: DIPHENOXYLATE/ATROPINE TAB PO STA (23:21)
[2022-02-24] VITALS (8 sets, daily range): BP systolic 110–135; BP diastolic 64–95
[2022-02-24] MEDS: Morphine 2mg Syringe 2 MG/ML SYR IV PRN (05:09)
[2022-02-24] MEDS: VANCOMYCIN HCL 125 MG CAPSULE PO SCH ×4 (05:09→23:18)
[2022-02-24 05:24] LABS: BASOPHILS % 0.4 % (0.0-1.0); EOSINOPHILS # (AUTO) 0.2 (0.0-0.4); EOSINOPHILS % 2.4 % (0.0-6.0); HEMATOCRIT 26.7 % (38.2-49.6); LYMPHOCYTES # (AUTO) 1.7 (1.0-3.2); LYMPHOCYTES % 24.5 % (18.0-39.1); MEAN CORPUSCULAR HEMOGLOBIN 29.5 pg (28-32); MEAN CORPUSCULAR HGB CONC 33.7 g/dL (31-35); MEAN CORPUSCULAR VOLUME 87.5 fL (81-99); MONOCYTES # (AUTO) 0.8 (0.2-0.8); MONOCYTES % 11.9 % (4.4-11.3); NEUTROPHILS # (AUTO) 3.9 (2.1-6.9); NEUTROPHILS % 57.5 % (38.7-80.0); PLATELET COUNT 194 x10e3/uL (140-360); RED BLOOD COUNT 3.05 x10e6/uL (4.3-5.7); RED CELL DISTRIBUTION WIDTH 13.5 % (11.7-14.4)
[2022-02-24 06:00] LABS: ANION GAP 11.9 mmol/L (8-16); CALCIUM 7.1 mg/dL (8.4-10.2); CREATININE, SERUM 6.39 mg/dL (0.72-1.25); PHOSPHORUS 2.3 MG/DL (2.3-4.7)
[2022-02-24 06:02] LABS: POTASSIUM 2.9 mmol/L (3.5-5.1)
[2022-02-24] MEDS ORDERED: SODIUM CHLORIDE 0.9% 250ML 250 ML ONE ×2 (08:37→13:44)
[2022-02-24] MEDS: MIDODRINE HCL 5 MG TABLET PO SCH ×3 (08:48→21:33)
[2022-02-24] MEDS: SUCRALFATE 1 GM TAB PO SCH ×4 (08:48→21:33)
[2022-02-24] MEDS: DIPHENOXYLATE/ATROPINE TAB PO SCH ×2 (08:48→16:25)
[2022-02-24] MEDS: MAGNESIUM OXIDE 400 MG TAB PO SCH ×2 (08:48→16:25)
[2022-02-24] MEDS: CHOLESTYRAMINE 4 GM PACKET PO SCH (08:48)
[2022-02-24] MEDS: FLUDROCORTISONE ACETATE 0.1 MG TAB PO SCH ×2 (08:48→16:25)
[2022-02-24] MEDS: DROXIDOPA 100 MG PO SCH ×3 (08:49→21:33)
[2022-02-24] MEDS: FOLIC ACID 1 MG TAB PO SCH (08:49)
[2022-02-24] MEDS: PANTOPRAZOLE SOD 40 MG TABEC PO SCH (08:49)
[2022-02-24] MEDS: APIXAB 2.5 MG TABLET PO SCH ×2 (08:49→21:33)
[2022-02-24] MEDS ORDERED: MAGNESIUM SULF 1GRAM/DEXTROSE 100 ML IV ONE (09:00)
[2022-02-24] MEDS ORDERED: POTASSIUM CHLORIDE 20MEQ/100ML 200 ML IV ONE (09:00)
[2022-02-24] MEDS: COLLAGENASE 5 GM TUBE TP SCH (09:05)
[2022-02-24] MEDS ORDERED: BISMUTH SUBSALICYLATE 262 MG/15 ML 8OZ BTL PO PRN (11:45)
[2022-02-24] MEDS ORDERED: VANCOMYCIN HCL 125 MG CAPSULE PO SCH (12:00)
[2022-02-24] MEDS ORDERED: VANCOMYCIN HCL 125 MG CAPSULE PO ONE (12:00)
[2022-02-24] MEDS: SIMVASTATIN 40 MG TAB PO SCH (21:33)
[2022-02-25] VITALS (8 sets, daily range): BP systolic 116–145; BP diastolic 58–84
[2022-02-25] MEDS: VANCOMYCIN HCL 125 MG CAPSULE PO SCH ×4 (05:26→23:53)
[2022-02-25] MEDS: MAGNESIUM OXIDE 400 MG TAB PO SCH ×2 (08:54→17:13)
[2022-02-25] MEDS: SUCRALFATE 1 GM TAB PO SCH ×4 (08:54→20:59)
[2022-02-25] MEDS: FLUDROCORTISONE ACETATE 0.1 MG TAB PO SCH ×2 (08:54→17:12)
[2022-02-25] MEDS: FOLIC ACID 1 MG TAB PO SCH (08:54)
[2022-02-25] MEDS: APIXAB 2.5 MG TABLET PO SCH ×2 (08:54→20:59)
[2022-02-25] MEDS: DIPHENOXYLATE/ATROPINE TAB PO SCH (08:54)
[2022-02-25] MEDS: PANTOPRAZOLE SOD 40 MG TABEC PO SCH (08:54)
[2022-02-25] MEDS: DROXIDOPA 100 MG PO SCH ×3 (08:55→20:59)
[2022-02-25] MEDS: COLLAGENASE 5 GM TUBE TP SCH (09:00)
[2022-02-25] MEDS: MIDODRINE HCL 5 MG TABLET PO SCH ×3 (09:00→20:59)
[2022-02-25] MEDS ORDERED: POTASSIUM CHLORIDE 20 MEQ TAB CR PO ONE (11:00)
[2022-02-25] MEDS: SIMVASTATIN 40 MG TAB PO SCH (20:59)
[2022-02-26] VITALS (7 sets, daily range): BP systolic 123–160; BP diastolic 79–90
[2022-02-26] MEDS: VANCOMYCIN HCL 125 MG CAPSULE PO SCH ×4 (05:35→23:31)
[2022-02-26] MEDS: COLLAGENASE 5 GM TUBE TP SCH (09:00)
[2022-02-26] MEDS: PANTOPRAZOLE SOD 40 MG TABEC PO SCH (09:32)
[2022-02-26] MEDS: SUCRALFATE 1 GM TAB PO SCH ×4 (09:32→20:46)
[2022-02-26] MEDS: APIXAB 2.5 MG TABLET PO SCH ×2 (09:32→20:47)
[2022-02-26] MEDS: MIDODRINE HCL 5 MG TABLET PO SCH ×3 (09:33→20:47)
[2022-02-26] MEDS: FLUDROCORTISONE ACETATE 0.1 MG TAB PO SCH ×2 (09:33→16:04)
[2022-02-26] MEDS: DROXIDOPA 100 MG PO SCH ×3 (09:34→20:48)
[2022-02-26] MEDS: FOLIC ACID 1 MG TAB PO SCH (09:34)
[2022-02-26] MEDS: MAGNESIUM OXIDE 400 MG TAB PO SCH ×2 (09:34→16:05)
[2022-02-26 09:49] LABS: BASOPHILS % 0.4 % (0.0-1.0); EOSINOPHILS # (AUTO) 0.1 (0.0-0.4); EOSINOPHILS % 1.1 % (0.0-6.0); HEMATOCRIT 28.4 % (38.2-49.6); HEMOGLOBIN 9.4 g/dL (14.0-18.0); LYMPHOCYTES # (AUTO) 1.6 (1.0-3.2); LYMPHOCYTES % 16.8 % (18.0-39.1); MEAN CORPUSCULAR HEMOGLOBIN 29.8 pg (28-32); MEAN CORPUSCULAR HGB CONC 33.1 g/dL (31-35); MEAN CORPUSCULAR VOLUME 90.2 fL (81-99); MONOCYTES # (AUTO) 0.9 (0.2-0.8); MONOCYTES % 9.6 % (4.4-11.3); NEUTROPHILS # (AUTO) 6.6 (2.1-6.9); NEUTROPHILS % 70.5 % (38.7-80.0); PLATELET COUNT 235 x10e3/uL (140-360); RED BLOOD COUNT 3.15 x10e6/uL (4.3-5.7); RED CELL DISTRIBUTION WIDTH 13.7 % (11.7-14.4)
[2022-02-26 10:03] LABS: ANION GAP 10.7 mmol/L (8-16); CALCIUM 7.5 mg/dL (8.4-10.2); CREATININE, SERUM 6.04 mg/dL (0.72-1.25); POTASSIUM 3.7 mmol/L (3.5-5.1)
[2022-02-26] MEDS: SIMVASTATIN 40 MG TAB PO SCH (20:48)
[2022-02-26] MEDS: HYDROCODONE/APAP 5MG-325MG TAB PO PRN (20:48)
[2022-02-27] VITALS (8 sets, daily range): BP systolic 123–155; BP diastolic 65–88
[2022-02-27] MEDS: HYDROCODONE/APAP 5MG-325MG TAB PO PRN ×2 (00:24→05:11)
[2022-02-27] MEDS: VANCOMYCIN HCL 125 MG CAPSULE PO SCH ×4 (05:11→23:02)
[2022-02-27 06:08] LABS: BASOPHILS % 0.3 % (0.0-1.0); EOSINOPHILS # (AUTO) 0.2 (0.0-0.4); EOSINOPHILS % 1.7 % (0.0-6.0); HEMATOCRIT 28.1 % (38.2-49.6); HEMOGLOBIN 9.2 g/dL (14.0-18.0); LYMPHOCYTES # (AUTO) 2.5 (1.0-3.2); LYMPHOCYTES % 28.5 % (18.0-39.1); MEAN CORPUSCULAR HEMOGLOBIN 29.8 pg (28-32); MEAN CORPUSCULAR HGB CONC 32.7 g/dL (31-35); MEAN CORPUSCULAR VOLUME 90.9 fL (81-99); MONOCYTES # (AUTO) 0.9 (0.2-0.8); MONOCYTES % 9.9 % (4.4-11.3); NEUTROPHILS # (AUTO) 5.1 (2.1-6.9); PLATELET COUNT 258 x10e3/uL (140-360); RED BLOOD COUNT 3.09 x10e6/uL (4.3-5.7); RED CELL DISTRIBUTION WIDTH 13.7 % (11.7-14.4)
[2022-02-27 06:24] LABS: ANION GAP 10.6 mmol/L (8-16); CALCIUM 7.7 mg/dL (8.4-10.2); POTASSIUM 3.6 mmol/L (3.5-5.1)
[2022-02-27] MEDS: DROXIDOPA 100 MG PO SCH ×3 (10:32→21:00)
[2022-02-27] MEDS: MAGNESIUM OXIDE 400 MG TAB PO SCH ×2 (10:32→17:00)
[2022-02-27] MEDS: FLUDROCORTISONE ACETATE 0.1 MG TAB PO SCH ×2 (10:32→17:00)
[2022-02-27] MEDS: APIXAB 2.5 MG TABLET PO SCH ×2 (10:32→22:42)
[2022-02-27] MEDS: PANTOPRAZOLE SOD 40 MG TABEC PO SCH (10:32)
[2022-02-27] MEDS: FOLIC ACID 1 MG TAB PO SCH (10:32)
[2022-02-27] MEDS: MIDODRINE HCL 5 MG TABLET PO SCH ×3 (10:33→21:00)
[2022-02-27] MEDS: SUCRALFATE 1 GM TAB PO SCH ×4 (10:33→22:42)
[2022-02-27] MEDS: COLLAGENASE 5 GM TUBE TP SCH (10:34)
[2022-02-27] MEDS: SIMVASTATIN 40 MG TAB PO SCH (22:42)
[2022-02-28] VITALS (11 sets, daily range): BP systolic 127–159; BP diastolic 66–103
[2022-02-28] MEDS: HYDROCODONE/APAP 5MG-325MG TAB PO PRN ×3 (04:52→20:48)
[2022-02-28] MEDS: VANCOMYCIN HCL 125 MG CAPSULE PO SCH ×3 (06:03→18:45)
[2022-02-28] MEDS: SUCRALFATE 1 GM TAB PO SCH ×4 (08:00→20:49)
[2022-02-28] MEDS: PANTOPRAZOLE SOD 40 MG TABEC PO SCH (08:00)
[2022-02-28] MEDS: MIDODRINE HCL 5 MG TABLET PO SCH ×3 (09:00→20:47)
[2022-02-28] MEDS: COLLAGENASE 5 GM TUBE TP SCH (09:15)
[2022-02-28] MEDS: MAGNESIUM OXIDE 400 MG TAB PO SCH ×2 (09:20→16:00)
[2022-02-28] MEDS: FOLIC ACID 1 MG TAB PO SCH (09:20)
[2022-02-28] MEDS: DROXIDOPA 100 MG PO SCH ×3 (09:20→20:47)
[2022-02-28] MEDS: APIXAB 2.5 MG TABLET PO SCH (09:20)
[2022-02-28] MEDS: FLUDROCORTISONE ACETATE 0.1 MG TAB PO SCH ×2 (09:20→16:00)
[2022-02-28] MEDS: SIMVASTATIN 40 MG TAB PO SCH (20:48)
[2022-03-01] VITALS (7 sets, daily range): BP systolic 100–147; BP diastolic 53–87
[2022-03-01] MEDS: VANCOMYCIN HCL 125 MG CAPSULE PO SCH ×4 (00:29→17:30)
[2022-03-01 05:38] LABS: BASOPHILS # (AUTO) 0.1 (0.0-0.1); BASOPHILS % 0.6 % (0.0-1.0); EOSINOPHILS # (AUTO) 0.2 (0.0-0.4); EOSINOPHILS % 1.5 % (0.0-6.0); HEMOGLOBIN 9.4 g/dL (14.0-18.0); LYMPHOCYTES # (AUTO) 2.3 (1.0-3.2); MEAN CORPUSCULAR HEMOGLOBIN 29.4 pg (28-32); MEAN CORPUSCULAR HGB CONC 33.6 g/dL (31-35); MEAN CORPUSCULAR VOLUME 87.5 fL (81-99); MONOCYTES # (AUTO) 1.1 (0.2-0.8); MONOCYTES % 10.3 % (4.4-11.3); NEUTROPHILS # (AUTO) 6.5 (2.1-6.9); NEUTROPHILS % 63.4 % (38.7-80.0); PLATELET COUNT 311 x10e3/uL (140-360); RED CELL DISTRIBUTION WIDTH 13.6 % (11.7-14.4)
[2022-03-01 05:57] LABS: ANION GAP 14.4 mmol/L (8-16); CALCIUM 8.2 mg/dL (8.4-10.2); CREATININE, SERUM 5.59 mg/dL (0.72-1.25); POTASSIUM 3.4 mmol/L (3.5-5.1)
[2022-03-01] MEDS: SUCRALFATE 1 GM TAB PO SCH ×4 (08:59→21:28)
[2022-03-01] MEDS: PANTOPRAZOLE SOD 40 MG TABEC PO SCH (08:59)
[2022-03-01] MEDS: FOLIC ACID 1 MG TAB PO SCH (08:59)
[2022-03-01] MEDS: DROXIDOPA 100 MG PO SCH ×3 (09:00→21:00)
[2022-03-01] MEDS: FLUDROCORTISONE ACETATE 0.1 MG TAB PO SCH ×2 (09:00→17:29)
[2022-03-01] MEDS: MIDODRINE HCL 5 MG TABLET PO SCH ×3 (09:00→21:00)
[2022-03-01] MEDS: COLLAGENASE 5 GM TUBE TP SCH (09:00)
[2022-03-01] MEDS: MAGNESIUM OXIDE 400 MG TAB PO SCH ×2 (09:00→17:30)
[2022-03-01] MEDS: HYDROCODONE/APAP 5MG-325MG TAB PO PRN (15:54)
[2022-03-01] MEDS ORDERED: POTASSIUM CHLORIDE 20 MEQ TAB CR PO ONE (17:30)
[2022-03-01] MEDS: SIMVASTATIN 40 MG TAB PO SCH (21:28)
[2022-03-02] VITALS (8 sets, daily range): BP systolic 107–133; BP diastolic 59–79
[2022-03-02] MEDS: VANCOMYCIN HCL 125 MG CAPSULE PO SCH ×5 (05:42→23:58)
[2022-03-02] MEDS: MIDODRINE HCL 5 MG TABLET PO SCH ×3 (09:00→20:55)
[2022-03-02] MEDS: COLLAGENASE 5 GM TUBE TP SCH (09:21)
[2022-03-02] MEDS: FOLIC ACID 1 MG TAB PO SCH (09:21)
[2022-03-02] MEDS: SUCRALFATE 1 GM TAB PO SCH ×4 (09:21→20:54)
[2022-03-02] MEDS: MAGNESIUM OXIDE 400 MG TAB PO SCH ×2 (09:21→17:19)
[2022-03-02] MEDS: FLUDROCORTISONE ACETATE 0.1 MG TAB PO SCH ×2 (09:21→17:19)
[2022-03-02] MEDS: PANTOPRAZOLE SOD 40 MG TABEC PO SCH (09:21)
[2022-03-02] MEDS: DROXIDOPA 100 MG PO SCH ×3 (09:21→20:55)
[2022-03-02] MEDS: HYDROCODONE/APAP 5MG-325MG TAB PO PRN (11:40)
[2022-03-02] MEDS: SIMVASTATIN 40 MG TAB PO SCH (20:54)
[2022-03-03] VITALS (7 sets, daily range): BP systolic 126–153; BP diastolic 62–87
[2022-03-03] MEDS: VANCOMYCIN HCL 125 MG CAPSULE PO SCH ×4 (04:58→23:27)
[2022-03-03 05:44] LABS: BASOPHILS # (AUTO) 0.1 (0.0-0.1); BASOPHILS % 0.7 % (0.0-1.0); EOSINOPHILS # (AUTO) 0.2 (0.0-0.4); EOSINOPHILS % 1.9 % (0.0-6.0); HEMATOCRIT 25.2 % (38.2-49.6); HEMOGLOBIN 8.6 g/dL (14.0-18.0); LYMPHOCYTES # (AUTO) 1.9 (1.0-3.2); LYMPHOCYTES % 20.9 % (18.0-39.1); MEAN CORPUSCULAR HEMOGLOBIN 30.2 pg (28-32); MEAN CORPUSCULAR HGB CONC 34.1 g/dL (31-35); MEAN CORPUSCULAR VOLUME 88.4 fL (81-99); MONOCYTES % 10.4 % (4.4-11.3); NEUTROPHILS # (AUTO) 5.9 (2.1-6.9); NEUTROPHILS % 65.2 % (38.7-80.0); PLATELET COUNT 284 x10e3/uL (140-360); RED BLOOD COUNT 2.85 x10e6/uL (4.3-5.7); RED CELL DISTRIBUTION WIDTH 13.2 % (11.7-14.4)
[2022-03-03 06:05] LABS: ANION GAP 15.7 mmol/L (8-16); CALCIUM 8.3 mg/dL (8.4-10.2); CREATININE, SERUM 5.68 mg/dL (0.72-1.25); POTASSIUM 3.7 mmol/L (3.5-5.1)
[2022-03-03] MEDS: MIDODRINE HCL 5 MG TABLET PO SCH ×3 (09:00→21:00)
[2022-03-03] MEDS: DROXIDOPA 100 MG PO SCH ×3 (09:00→21:00)
[2022-03-03] MEDS: SUCRALFATE 1 GM TAB PO SCH ×4 (11:30→21:00)
[2022-03-03] MEDS: HEPARIN SOD (PORCINE) 5,000 UNIT/ML VIAL SC SCH ×2 (11:53→21:16)
[2022-03-03] MEDS: FLUDROCORTISONE ACETATE 0.1 MG TAB PO SCH ×2 (11:56→18:18)
[2022-03-03] MEDS: FOLIC ACID 1 MG TAB PO SCH (11:56)
[2022-03-03] MEDS: PANTOPRAZOLE SOD 40 MG TABEC PO SCH (11:56)
[2022-03-03] MEDS: MAGNESIUM OXIDE 400 MG TAB PO SCH ×2 (11:57→18:18)
[2022-03-03] MEDS: COLLAGENASE 5 GM TUBE TP SCH (12:24)
[2022-03-03 13:32] LABS: INR 0.88; PROTHROMBIN TIME 12.8 seconds (11.9-14.5)
[2022-03-03 13:33] LABS: PARTIAL THROMBOPLASTIN TIME 32.3 seconds (23.8-35.5)
[2022-03-03] MEDS: SIMVASTATIN 40 MG TAB PO SCH (21:10)
[2022-03-04] VITALS (8 sets, daily range): BP systolic 112–154; BP diastolic 52–89
[2022-03-04] MEDS: VANCOMYCIN HCL 125 MG CAPSULE PO SCH ×4 (05:27→23:37)
[2022-03-04] MEDS: MIDODRINE HCL 5 MG TABLET PO SCH ×3 (09:00→21:00)
[2022-03-04] MEDS: COLLAGENASE 5 GM TUBE TP SCH (09:00)
[2022-03-04] MEDS: DROXIDOPA 100 MG PO SCH ×3 (09:00→20:59)
[2022-03-04] MEDS: SUCRALFATE 1 GM TAB PO SCH ×4 (11:30→21:14)
[2022-03-04] MEDS: FOLIC ACID 1 MG TAB PO SCH (11:37)
[2022-03-04] MEDS: FLUDROCORTISONE ACETATE 0.1 MG TAB PO SCH ×2 (11:37→18:27)
[2022-03-04] MEDS: PANTOPRAZOLE SOD 40 MG TABEC PO SCH (11:37)
[2022-03-04] MEDS: MAGNESIUM OXIDE 400 MG TAB PO SCH ×2 (11:37→18:27)
[2022-03-04] MEDS: HEPARIN SOD (PORCINE) 5,000 UNIT/ML VIAL SC SCH ×2 (11:44→21:19)
[2022-03-04] MEDS: SIMVASTATIN 40 MG TAB PO SCH (21:14)
[2022-03-05] VITALS (8 sets, daily range): BP systolic 111–144; BP diastolic 51–78
[2022-03-05] MEDS: VANCOMYCIN HCL 125 MG CAPSULE PO SCH ×4 (05:23→23:17)
[2022-03-05] MEDS: HEPARIN SOD (PORCINE) 5,000 UNIT/ML VIAL SC SCH ×2 (08:54→21:00)
[2022-03-05] MEDS: MIDODRINE HCL 5 MG TABLET PO SCH ×3 (08:57→21:00)
[2022-03-05] MEDS: FOLIC ACID 1 MG TAB PO SCH (08:57)
[2022-03-05] MEDS: PANTOPRAZOLE SOD 40 MG TABEC PO SCH (08:57)
[2022-03-05] MEDS: MAGNESIUM OXIDE 400 MG TAB PO SCH ×2 (08:57→17:26)
[2022-03-05] MEDS: SUCRALFATE 1 GM TAB PO SCH ×4 (08:57→21:00)
[2022-03-05] MEDS: FLUDROCORTISONE ACETATE 0.1 MG TAB PO SCH ×2 (08:58→17:25)
[2022-03-05] MEDS: DROXIDOPA 100 MG PO SCH ×3 (08:58→20:33)
[2022-03-05] MEDS: COLLAGENASE 5 GM TUBE TP SCH (09:00)
[2022-03-05] MEDS: HYDROCODONE/APAP 5MG-325MG TAB PO PRN (12:39)
[2022-03-05] MEDS ORDERED: SODIUM CHLORIDE 0.9% 250ML 250 ML ONE ×2 (13:24→13:55)
[2022-03-05] MEDS ORDERED: LIDOCAINE HCL 1% LOCAL INJ 20 ML VIAL ONE (13:24)
[2022-03-05] MEDS ORDERED: MIDAZOLAM HCL 2 MG/2 ML VIAL ONE (13:54)
[2022-03-05] MEDS ORDERED: HEPARIN SOD (PORCINE) 1000 UNIT/ML SDV ONE (13:55)
[2022-03-05] MEDS ORDERED: FENTANYL CITRATE/PF 100MCG/2 ML INJ ONE (13:55)
[2022-03-05] MEDS: SIMVASTATIN 40 MG TAB PO SCH (21:00)
[2022-03-06 05:30] VITALS: BP 117/56
[2022-03-06] MEDS: VANCOMYCIN HCL 125 MG CAPSULE PO SCH ×2 (05:39→12:59)
[2022-03-06 05:59] LABS: BASOPHILS # (AUTO) 0.1 (0.0-0.1); BASOPHILS % 1.2 % (0.0-1.0); EOSINOPHILS # (AUTO) 0.2 (0.0-0.4); EOSINOPHILS % 3.1 % (0.0-6.0); HEMATOCRIT 25.2 % (38.2-49.6); HEMOGLOBIN 8.2 g/dL (14.0-18.0); LYMPHOCYTES # (AUTO) 1.6 (1.0-3.2); LYMPHOCYTES % 27.1 % (18.0-39.1); MEAN CORPUSCULAR HGB CONC 32.5 g/dL (31-35); MEAN CORPUSCULAR VOLUME 92.3 fL (81-99); MONOCYTES # (AUTO) 0.8 (0.2-0.8); MONOCYTES % 14.3 % (4.4-11.3); NEUTROPHILS # (AUTO) 3.1 (2.1-6.9); NEUTROPHILS % 53.6 % (38.7-80.0); PLATELET COUNT 253 x10e3/uL (140-360); RED BLOOD COUNT 2.73 x10e6/uL (4.3-5.7); RED CELL DISTRIBUTION WIDTH 13.2 % (11.7-14.4)
[2022-03-06 06:24] LABS: ANION GAP 14.4 mmol/L (8-16); CALCIUM 8.1 mg/dL (8.4-10.2); CREATININE, SERUM 5.59 mg/dL (0.72-1.25); POTASSIUM 3.4 mmol/L (3.5-5.1)
[2022-03-06 08:00] VITALS: BP 127/73
[2022-03-06] MEDS: SUCRALFATE 1 GM TAB PO SCH ×4 (08:52→21:00)
[2022-03-06] MEDS: FOLIC ACID 1 MG TAB PO SCH (08:52)
[2022-03-06] MEDS: MAGNESIUM OXIDE 400 MG TAB PO SCH ×2 (08:52→17:02)
[2022-03-06] MEDS: FLUDROCORTISONE ACETATE 0.1 MG TAB PO SCH ×2 (08:52→17:02)
[2022-03-06] MEDS: DROXIDOPA 100 MG PO SCH ×3 (08:54→19:40)
[2022-03-06] MEDS: MIDODRINE HCL 5 MG TABLET PO SCH ×3 (08:54→21:00)
[2022-03-06] MEDS: PANTOPRAZOLE SOD 40 MG TABEC PO SCH (08:55)
[2022-03-06] MEDS: HEPARIN SOD (PORCINE) 5,000 UNIT/ML VIAL SC SCH (09:08)
[2022-03-06 09:58] VITALS: BP 117/56
[2022-03-06 11:46] VITALS: BP 133/62
[2022-03-06] MEDS ORDERED: POTASSIUM CHLORIDE 20 MEQ TAB CR PO ONE (12:30)
[2022-03-06] MEDS: COLLAGENASE 5 GM TUBE TP SCH (15:07)
[2022-03-06 16:23] VITALS: BP 132/67
[2022-03-06] MEDS ORDERED: APIXAB 2.5 MG TABLET PO SCH (17:00)
[2022-03-06] MEDS: SIMVASTATIN 40 MG TAB PO SCH (21:00)
[2022-03-06 21:05] VITALS: BP 141/77
[2022-03-07] VITALS (8 sets, daily range): BP systolic 110–131; BP diastolic 51–77
[2022-03-07] MEDS: PANTOPRAZOLE SOD 40 MG TABEC PO SCH (07:30)
[2022-03-07] MEDS: SUCRALFATE 1 GM TAB PO SCH ×4 (07:30→21:00)
[2022-03-07] MEDS ORDERED: DEXTROSE 5%/0.9% SOD CHL 1,000 ML IV ONE (09:00)
[2022-03-07] MEDS: DROXIDOPA 100 MG PO SCH ×3 (09:00→21:00)
[2022-03-07] MEDS: FLUDROCORTISONE ACETATE 0.1 MG TAB PO SCH ×2 (09:00→18:18)
[2022-03-07] MEDS: FOLIC ACID 1 MG TAB PO SCH (09:00)
[2022-03-07] MEDS: MAGNESIUM OXIDE 400 MG TAB PO SCH ×2 (09:00→18:18)
[2022-03-07] MEDS: MIDODRINE HCL 5 MG TABLET PO SCH ×3 (09:00→21:00)
[2022-03-07] MEDS ORDERED: MIDAZOLAM HCL 2 MG/2 ML VIAL ONE (14:22)
[2022-03-07] MEDS ORDERED: FENTANYL CITRATE/PF 100MCG/2 ML INJ ONE (14:23)
[2022-03-07] MEDS ORDERED: SODIUM CHLORIDE 0.9% 250ML 250 ML ONE ×2 (14:23→15:24)
[2022-03-07] MEDS ORDERED: HEPARIN SOD (PORCINE) 1000 UNIT/ML SDV ONE (14:24)
[2022-03-07] MEDS ORDERED: LIDOCAINE HCL 1% LOCAL INJ 20 ML VIAL ONE (15:24)
[2022-03-07] MEDS: COLLAGENASE 5 GM TUBE TP SCH (16:34)
[2022-03-07] MEDS: SIMVASTATIN 40 MG TAB PO SCH (21:00)
[2022-03-08] VITALS (7 sets, daily range): BP systolic 114–144; BP diastolic 50–68
[2022-03-08 05:24] LABS: ALBUMIN 1.3 g/dL (3.5-5.0); ALBUMIN/GLOBULIN RATIO 0.5 (0.8-2.0); ANION GAP 12.5 mmol/L (8-16); CREATININE, SERUM 5.56 mg/dL (0.72-1.25); POTASSIUM 3.5 mmol/L (3.5-5.1)
[2022-03-08] MEDS: SUCRALFATE 1 GM TAB PO SCH ×4 (08:12→21:00)
[2022-03-08] MEDS: PANTOPRAZOLE SOD 40 MG TABEC PO SCH (08:12)
[2022-03-08] MEDS: DROXIDOPA 100 MG PO SCH ×3 (09:00→21:00)
[2022-03-08] MEDS: MAGNESIUM OXIDE 400 MG TAB PO SCH ×2 (09:52→17:03)
[2022-03-08] MEDS: FOLIC ACID 1 MG TAB PO SCH (09:52)
[2022-03-08] MEDS: FLUDROCORTISONE ACETATE 0.1 MG TAB PO SCH ×2 (09:52→17:02)
[2022-03-08] MEDS: COLLAGENASE 5 GM TUBE TP SCH (09:52)
[2022-03-08] MEDS: MIDODRINE HCL 5 MG TABLET PO SCH ×3 (09:52→21:00)
[2022-03-08] MEDS: VANCOMYCIN HCL 125 MG CAPSULE PO SCH ×2 (14:57→23:21)
[2022-03-08] MEDS ORDERED: APIXAB 2.5 MG TABLET PO SCH (17:00)
[2022-03-08] MEDS: APIXAB 2.5 MG TABLET PO SCH (17:02)
[2022-03-08] MEDS: SIMVASTATIN 40 MG TAB PO SCH (21:00)
[2022-03-09] VITALS: BP 134/69
[2022-03-09 04:00] VITALS: BP 115/69
[2022-03-09] MEDS: VANCOMYCIN HCL 125 MG CAPSULE PO SCH ×3 (06:00→15:00)
[2022-03-09 08:00] VITALS: BP 108/60
[2022-03-09] MEDS: SUCRALFATE 1 GM TAB PO SCH ×2 (08:29→11:30)
[2022-03-09] MEDS: PANTOPRAZOLE SOD 40 MG TABEC PO SCH (08:29)
[2022-03-09] MEDS: DROXIDOPA 100 MG PO SCH ×2 (09:00→15:37)
[2022-03-09] MEDS: FOLIC ACID 1 MG TAB PO SCH (09:01)
[2022-03-09] MEDS: MIDODRINE HCL 5 MG TABLET PO SCH ×2 (09:01→15:37)
[2022-03-09] MEDS: MAGNESIUM OXIDE 400 MG TAB PO SCH (09:02)
[2022-03-09] MEDS: COLLAGENASE 5 GM TUBE TP SCH (09:02)
[2022-03-09] MEDS: FLUDROCORTISONE ACETATE 0.1 MG TAB PO SCH (09:02)
[2022-03-09] MEDS: APIXAB 2.5 MG TABLET PO SCH (09:02)
[2022-03-09 14:19] VITALS: BP 118/72
[2022-03-09 14:48] VITALS: BP 118/72
== END 2022-03-09 17:25 | DRG 871 ==
LOC: ER 15:15 → ERHOLD 17:07 → ICU 17:40 → MED/SURG3 02-17 13:38
PROVIDERS: ADMIT Internal Medicine; ATTEND Internal Medicine
PROC: 02HV33Z Insertion of Infusion Device into Superior Vena Cava, Percutaneous Approach (ICD-10-PCS; 2022-02-15)
PROC: 5A1935Z Respiratory Ventilation, Less than 24 Consecutive Hours (ICD-10-PCS; 2022-02-15)
PROC: 0BH17EZ Insertion of Endotracheal Airway into Trachea, Via Natural or Artificial Opening (ICD-10-PCS; 2022-02-15)
PROC: 3E043XZ Introduction of Vasopressor into Central Vein, Percutaneous Approach (ICD-10-PCS; 2022-02-15)
PROC: 3E04329 Introduction of Other Anti-infective into Central Vein, Percutaneous Approach (ICD-10-PCS; 2022-02-15)
PROC: 3E1M39Z Irrigation of Peritoneal Cavity using Dialysate, Percutaneous Approach (ICD-10-PCS; principal; 2022-02-16)
PROC: 30243N1 Transfusion of Nonautologous Red Blood Cells into Central Vein, Percutaneous Approach (ICD-10-PCS; 2022-02-18)
PROC: 0JH63XZ Insertion of Tunneled Vascular Access Device into Chest Subcutaneous Tissue and Fascia, Percutaneous Approach (ICD-10-PCS; 2022-03-07)
PROC: 02HV33Z Insertion of Infusion Device into Superior Vena Cava, Percutaneous Approach (ICD-10-PCS; 2022-03-07)
PROC: B5181ZA Fluoroscopy of Superior Vena Cava using Low Osmolar Contrast, Guidance (ICD-10-PCS; 2022-03-07)
DX: A41.9 Sepsis, unspecified organism (principal); I21.A1 Myocardial infarction type 2; N18.6 End stage renal disease; J96.00 Acute respiratory failure, unspecified whether with hypoxia or hypercapnia; J18.9 Pneumonia, unspecified organism; R65.21 Severe sepsis with septic shock; I13.2 Hypertensive heart and chronic kidney disease with heart failure and with stage 5 chronic kidney disease, or end stage renal disease; L97.929 Non-pressure chronic ulcer of unspecified part of left lower leg with unspecified severity; L97.919 Non-pressure chronic ulcer of unspecified part of right lower leg with unspecified severity; A04.72 Enterocolitis due to Clostridium difficile, not specified as recurrent; I50.32 Chronic diastolic (congestive) heart failure; I82.512 Chronic embolism and thrombosis of left femoral vein; D68.32 Hemorrhagic disorder due to extrinsic circulating anticoagulants; K92.2 Gastrointestinal hemorrhage, unspecified; D63.1 Anemia in chronic kidney disease; J44.9 Chronic obstructive pulmonary disease, unspecified; I95.89 Other hypotension; E11.22 Type 2 diabetes mellitus with diabetic chronic kidney disease; E78.5 Hyperlipidemia, unspecified; I48.0 Paroxysmal atrial fibrillation; E66.9 Obesity, unspecified; Z68.36 Body mass index [BMI] 36.0-36.9, adult; Z99.2 Dependence on renal dialysis; I35.0 Nonrheumatic aortic (valve) stenosis; F45.8 Other somatoform disorders; Z83.3 Family history of diabetes mellitus; Z82.49 Family history of ischemic heart disease and other diseases of the circulatory system; Z79.82 Long term (current) use of aspirin; Z20.822 Contact with and (suspected) exposure to COVID-19; S01.111A Laceration without foreign body of right eyelid and periocular area, initial encounter; S40.022A Contusion of left upper arm, initial encounter; W06.XXXA Fall from bed, initial encounter; Y92.230 Patient room in hospital as the place of occurrence of the external cause; Z91.81 History of falling; R29.6 Repeated falls; E87.6 Hypokalemia; D50.0 Iron deficiency anemia secondary to blood loss (chronic); S80.01XA Contusion of right knee, initial encounter; I65.21 Occlusion and stenosis of right carotid artery
CPT/HCPCS: 31500; 36415; 36555; 36558; 36600; 51700; 70450; 71045; 74470; 76937; 77001; 78452; 80048; 80053; 80329; 82270; 82550; 82553; 82607; 82746; 82805; 82948; 83540; 83605; 83735; 84100; 84466; 84484; 85025; 85045; 85610; 85730; 86704; 86705; 86850; 86900; 86920; 87040; 87070; 87205; 87324; 87449; 87493; 89051; 92950; 93005; 93017; 93880; 93970; 94003; 94799; 96361; 97139; 99251; 99285; A9502; C1769; J0171; J0330; J0692; J1100; J1644; J1720; J1756; J2001; J2185; J2250; J2270; J2543; J3010; J3370; J3420; J3475; J3480; J7030; J7042; J7050; J7070; P9016; P9047